=== PATIENT | female | born 1945 | race Caucasian/White ===

== ENCOUNTER 2017-06-24 12:47 | Day surgery (SDC) | payer MEDICARE ==
[~2017-06-24] VITALS: Ht 163.8 cm; Wt 47.7 kg
[2017-06-24 13:45] VITALS: BP 148/71; PULSE 68; RESP 16; O2SAT 100
[2017-06-24] MEDS ORDERED: BYST5TAB2 PO (14:17)
[2017-06-24] MEDS ORDERED: LEVO75TA3 PO (14:17)
[2017-06-24] MEDS ORDERED: SIMV10TA PO (14:17)
[2017-06-24] MEDS ORDERED: ASPI-516 CHEW (14:17)
[2017-06-24 14:31] LABS: BICARBONATE 28.6 MEQ/L (21.0-32.0); CALCIUM 9.8 MG/DL (8.5-10.1); CREATININE 1.21 MG/DL (0.50-1.00)
--- NOTE | 2017-06-24 14:31 | PD.VS.PN ---
Pre-operative Note Pre-operative diagnosis: Symptomatic LEFT knee varix Planned procedure: Excision of LEFT knee varix Interval History: Pt has been feeling well and has no interval complaints. Labs: Laboratory Results Test 06/24/17 13:40 Orders: NPO Ancef 1g IV OCTOR Post-operative destination: DOCU Consent: Informed consent has been obtained from Sofia Burrows. I have explained the procedure in detail and discussed the risks, benefits, and potential complications. All questions have been answered. Patient contact information: Friend: [phone] Dallas Guzman MD Jun 24, 2017 14:31
[2017-06-24] MEDS ORDERED: LEVOFLOXACIN 500 MG PREMIX INJ 100 ML IV ONE (15:54)
[2017-06-24] MEDS ORDERED: MIDAZOLAM HCL 5 MG/5 ML VIAL ONE (15:58)
[2017-06-24] MEDS ORDERED: LIDOCAINE HCL 1% PF 30 ML VIAL ONE (15:59)
[2017-06-24] MEDS ORDERED: ONDANSETRON HCL 4 MG/2 ML VIAL ONE (15:59)
--- NOTE | 2017-06-24 16:31 | HHI.PR ---
cc: Dallas Guzman MD Immediate Post Op Note Procedure Date: Jun 24, 2017 Pre Op Diagnosis: L knee varix, pain Post Op Diagnosis: L knee varix, pain Surgeon: Dallas Guzman Associate Civil Engineer(s): none Procedure: Excision of varix LEFT knee Findings: thrombosed varix Additional Information: successful excision Complications: none Specimen(s) removed: none for pathology Estimated blood loss: 10mL Anesthesia: MAC Drains: None Patient to: Other (DOCU) Patient Condition: Good Implant/Devices: SEE IMPLANT LOG (if applicable) Date/Time of Procedure: SEE SURGICAL CARE RECORD Dallas Guzman MD Jun 24, 2017 16:31
--- NOTE | 2017-06-24 17:34 | MP ---
cc: Dallas Guzman MD DATE OF OPERATION: 06/24/2017 PREOPERATIVE DIAGNOSIS: Left knee varix. POSTOPERATIVE DIAGNOSIS: Left knee varix. PROCEDURE: Excision of left knee varicosity. ATTENDING SURGEON: Dallas Guzman MD AUTHOR SURGEON: None. ANESTHESIA: Local with sedation. INDICATION: Ms. Burrows is a 71-year-old lady with significant venous insufficiency. She has a left knee varix, which is protuberant and has bled. It is causing her significant discomfort despite wearing compression, and she is taken to the operating room for excision. DESCRIPTION OF PROCEDURE: Informed consent obtained from the patient. She was taken to the operating room and placed supine on the operating table. An appropriate timeout was taken to ensure the patient's identify, operative site and planned procedure, and 500 mg of Levaquin was administered prior to skin incision, will be discontinued after single preoperative dose. Levaquin was chosen because the patient has PENICILLIN ALLERGY. Everyone in the room agreed with timeout and we proceeded. Her anterior knee was prepped and draped and locally anesthetized with 1% lidocaine. An incision was made using 11 blade in a transverse orientation, and the varix was excised in its entirety with feeding branches being ligated with silk suture. The wound was irrigated, made hemostatic and closed with 2-0 nylon. Sponge and needle counts were correct at the end of the case. I was present and scrubbed for the entire procedure. Dallas Guzman MD RJF/SB , 04:54 PM , 05:33 PM
== END 2017-06-24 17:38 | disposition home or self-care (01) ==
LOC: HDOC 12:47 → HDIC 12:47 → HDOC 17:38
PROVIDERS: ATTEND Surgery
DX: I87.2 Venous insufficiency (chronic) (peripheral) (principal); I83.92 Asymptomatic varicose veins of left lower extremity; I10 Essential (primary) hypertension; I73.9 Peripheral vascular disease, unspecified
CPT/HCPCS: 37765; 80048; J1956; J2250; J2405; J3010